=== PATIENT | female | born 1995 | race Caucasian/White ===

== ENCOUNTER 2019-01-31 12:20 | Emergency (ER) | payer OTHER ==
--- NOTE | 2019-01-31 13:02 | EDPHY ---
H & P Time Seen by Provider: 01/31/19 12:59 HPI/ROS: Chief complaint. Chest pain, shortness of breath HPI. 23-year-old female was at work and about an hour and a half ago had some chest tightness and sense of shortness of breath. Anterior chest 8. No radiation to her back. Tingling in both hands were present. She feels like she can't take a deep breath. She has been suffering from seasonal allergies. She has had no fever cough. No recent travel. No unusual leg pain or swelling. No history of asthma. She was feeling well till onset an hour and half ago. ROS 10 systems were reviewed and negative with the exception of the elements mentioned in the history of present illness Past Medical/Surgical History: Seasonal allergies, IUD Social History: Single, daily smoker, no alcohol Smoking Status: Light smoker Physical Exam: General Appearance: Alert well-developed female mild distress vital signs are stable Eyes: Pupils equal and round no pallor or injection. ENT, Mouth: Mucous membranes are moist. Respiratory: There are no retractions, lungs are clear to auscultation. Cardiovascular: Regular rate and rhythm. Gastrointestinal: Abdomen is soft and nontender, no masses, bowel sounds normal. Neurological: Awake and alert, sensory and motor exams grossly normal. Skin: Warm and dry, no rashes. Musculoskeletal: Neck is supple nontender. Extremities symmetrical, full range of motion. Psychiatric: Patient is oriented X 3, there is no agitation. Constitutional: Initial Vital Signs Temperature (C) 36.7 C 01/31/19 12:24 Heart Rate 77 01/31/19 12:24 Respiratory Rate 18 01/31/19 12:24 Blood Pressure 128/87 H 01/31/19 12:24 O2 Sat (%) 94 01/31/19 12:24 O2 Delivery Mode Room Air Allergies/Adverse Reactions: shellfish derived Allergy (Verified 03/16/16 09:09) Home Medications: Medication Instructions Recorded MIRENA 03/16/16 Albuterol 01/31/19 predniSONE 40 mg PO DAILY #8 tablet 01/31/19 Medical Decision Making - Diagnostics EKG Interpretation: EKG interpreted by me shows normal sinus rhythm normal interval and axis. QRS is otherwise normal. No significant ST elevation or depression. No arrhythmia. The rate 75. Imaging Results: Imaging Impressions Chest X-Ray 05/26/19 13:21 Impression: 1. No focal pneumonia. 2. No pneumothorax. Chest x-ray interpreted by me is normal Procedures: Cuauhtemoc harp ED Course/Re-evaluation: Re-evaluation at 2:15 p.m.. Patient is stable. She feels much improved and breathing better. Stephenson tightness is diminished. Patient and I discussed EKG, x-ray, laboratory evaluation. We discussed treatment plan including criteria for return and importance of follow-up and further evaluation. She expresses understanding and agreement Differential Diagnosis: I considered asthma, environmental allergies, bronchitis, pneumonia, pulmonary embolus, acute coronary syndrome - Data Points Laboratory Results: Laboratory Results 01/31/19 13:15 01/31/19 13:15 01/31/19 01/31/19 01/31/19 13:17 13:15 13:15 WBC RBC Hgb Hct MCV MCH MCHC RDW Plt Count MPV Neut % (Auto) Lymph % (Auto) Davison % (Auto) Eos % (Auto) Baso % (Auto) Nucleat RBC Rel Count Absolute Neuts (auto) Absolute Lymphs (auto) Absolute Monos (auto) Absolute Eos (auto) Absolute Basos (auto) Absolute Nucleated RBC Immature Gran % Immature Gran # D-Dimer 0.37 ug/mLFEU ug/mLFEU (0.00-0.50) Sodium 137 mEq/L mEq/L (135-145) Potassium 4.7 mEq/L mEq/L (3.5-5.2) Chloride 100 mEq/L mEq/L (97-110) Carbon Dioxide 21 mEq/l L mEq/l (22-31) Anion Gap 16 mEq/L H mEq/L (6-14) BUN 15 mg/dL mg/dL (7-23) Creatinine 0.9 mg/dL mg/dL (0.6-1.0) Estimated GFR > 60 Glucose 65 mg/dL L mg/dL (70-100) Calcium 9.8 mg/dL mg/dL (8.5-10.4) POC Troponin I 0.03 ng/mL ng/mL (0.00-0.08) 01/31/19 13:15 WBC 11.33 10^3/uL H 10^3/uL (3.80-9.50) RBC 4.59 10^6/uL 10^6/uL (4.18-5.33) Hgb 14.1 g/dL g/dL (12.6-16.3) Hct 42.2 % % (38.0-47.0) MCV 91.9 fL fL (81.5-99.8) MCH 30.7 pg pg (27.9-34.1) MCHC 33.4 g/dL g/dL (32.4-36.7) RDW 12.6 % % (11.5-15.2) Plt Count 379 10^3/uL 10^3/uL (150-400) MPV 8.8 fL fL (8.7-11.7) Neut % (Auto) 85.1 % H % (39.3-74.2) Lymph % (Auto) 11.2 % L % (15.0-45.0) Davison % (Auto) 2.8 % L % (4.5-13.0) Eos % (Auto) 0.1 % L % (0.6-7.6) Baso % (Auto) 0.4 % % (0.3-1.7) Nucleat RBC Rel Count 0.0 % % (0.0-0.2) Absolute Neuts (auto) 9.65 10^3/uL H 10^3/uL (1.70-6.50) Absolute Lymphs (auto) 1.27 10^3/uL 10^3/uL (1.00-3.00) Absolute Monos (auto) 0.32 10^3/uL 10^3/uL (0.30-0.80) Absolute Eos (auto) 0.01 10^3/uL L 10^3/uL (0.03-0.40) Absolute Basos (auto) 0.04 10^3/uL 10^3/uL (0.02-0.10) Absolute Nucleated RBC 0.00 10^3/uL 10^3/uL (0-0.01) Immature Gran % 0.4 % % (0.0-1.1) Immature Gran # 0.04 10^3/uL 10^3/uL (0.00-0.10) D-Dimer Sodium Potassium Chloride Carbon Dioxide Anion Gap BUN Creatinine Estimated GFR Glucose Calcium POC Troponin I Medications Given: Discontinued Medications Albuterol/Ipratropium (Duoneb) 3 ml IH EDNOW ONE Stop: 01/31/19 13:22 Last Admin: 01/31/19 13:31 Dose: 3 ml Point of Care Test Results: Chemistry 01/31/19 13:17 POC Troponin I 0.03 ng/mL ng/mL (0.00-0.08) Departure - Departure Disposition: Home, Routine, Self-Care Clinical Impression: Chest pain Qualifiers: Chest pain type: unspecified Qualified Code(s): R07.9 - Chest pain, unspecified Condition: Good Instructions: Chest Pain (ED), Shortness of Breath (ED) Additional Instructions: Prednisone daily for the next 4 days to help with breathing Use your albuterol inhaler 2 puffs every 4-6 hours for the next 1-2 days. Return for worsening symptoms Recheck in 2 days if not improved Referrals: NONE *PRIMARY CARE P,. [Primary Care Provider] - As per Instructions Tyree Guadarrama MD [Medical Doctor] - 2-3 days, if not improved Stand Alone Forms: Work Excuse Prescriptions: predniSONE 40 mg PO DAILY #8 tablet
[2019-01-31] MEDS ORDERED: IPRATROPIUM/ALBUTEROL 3 ML DEYVIAL IH ONE (13:21)
[2019-01-31 13:25] LABS: PLATELET COUNT 379 10^3/uL (150-400)
[2019-01-31 14:36] VITALS: BP 125/75
--- NOTE | 2019-01-31 18:44 | CPEKG ---
Test Reason : OPEN Blood Pressure : / mmHG Vent. Rate : 075 BPM Atrial Rate : 074 BPM P-R Int : 086 ms QRS Dur : 076 ms QT Int : 377 ms P-R-T Axes : 010 084 023 degrees QTc Int : 421 ms Sinus rhythm Short TN interval Confirmed by An Burnett ([id number]) on 01/31/2019 6:44:23 PM Referred By: AN BURNETT Confirmed By:An Burnett
== END 2019-01-31 14:35 | disposition home or self-care (01) ==
DX: R07.9 Chest pain, unspecified (principal); R06.02 Shortness of breath
CPT/HCPCS: 84484-ER